=== PATIENT | female | born 1970 | race Caucasian/White ===

== ENCOUNTER 2018-05-27 08:22 | Day surgery (SDC) | payer BC ==
[~2018-05-27 08:22] MED LIST: Buffered Lidocaine 0.9% SYRIN* 5 ML/SYR SYRINGE INTRADERM ONE
[2018-05-27] MEDS ORDERED: Buffered Lidocaine 0.9% SYRIN* 5 ML/SYR SYRINGE ONE (08:28)
[2018-05-27] MEDS ORDERED: Oxymetazoline 0.05% NASAL SPR* 15 ML BTL ONE ×2 (09:08→10:02)
[2018-05-27] MEDS ORDERED: Lidocain 1% EPI 1:100,000 * 30 ML MDV ONE (10:02)
[2018-05-27] MEDS ORDERED: Bacitracin OINTMENT* 0.5% 0.5 oz TUBE ONE (10:02)
[2018-05-27] MEDS ORDERED: Lidocaine 4% TOPICAL* 50 ML TOP.SOLN ONE (10:02)
[2018-05-27] MEDS ORDERED: DiMENhydriNATE IV* 50 MG/ML VIAL IV PUSH PRN (10:14)
[2018-05-27] MEDS ORDERED: PROCHLORPERAZINE INJ 5 MG/ML 2 ML VIAL IV PRN (10:14)
[2018-05-27] MEDS ORDERED: Naloxone* 0.4 MG/ML 1 ML VIAL IV PRN (10:14)
[2018-05-27] MEDS ORDERED: Acetaminophen TAB* 325 MG PO PRN (10:14)
[2018-05-27] MEDS ORDERED: Levalbuterol 0.63MG/3ML NEB* UNIT OF USE INH PRN (10:14)
[2018-05-27] MEDS ORDERED: fentaNYL* 50 MCG/ML 2 ML VIAL (100 MCG VIAL) IV PRN (10:14)
[2018-05-27] MEDS ORDERED: Ondansetron INJ* 2 MG/ML VIAL IV PRN (10:14)
[2018-05-27] MEDS ORDERED: Propofol* 10 MG/ML 20 ML BTL IV PUSH ONE (10:24)
[2018-05-27] MEDS ORDERED: Famotidine IV* 10 MG/ML 2 ML (20 mg) ONE (10:24)
[2018-05-27] MEDS ORDERED: Midazolam* 1 MG/ML 2 ML VIAL (2 MG) ONE (10:24)
[2018-05-27] MEDS ORDERED: fentaNYL* 50 MCG/ML 2 ML VIAL (100 MCG VIAL) ONE (10:24)
[2018-05-27] MEDS ORDERED: Dexamethasone IV* 4 MG/ML 1 ML (4 MG) ONE (10:24)
[2018-05-27 11:32] VITALS: BP 127/79
--- NOTE | 2018-05-27 21:47 | OP ---
DATE OF OPERATION: 05/27/18 - [facility] DATE OF : 74 SURGEON: Franklin Cazares MD CLOTH FOLDER MACHINE: None. ANESTHESIA: Local MAC. PRE-OP DIAGNOSIS: Nasal septal perforation. POST-OP DIAGNOSIS: Nasal septal perforation. OPERATIVE PROCEDURE: Placement of septal button under anesthesia. FINDINGS: Moderate sized anterior septal perforation measuring 15 x 10 mm. INDICATIONS: This is a 47-year-old woman who was seen for chronic nasal complaints. On exam, she was noted to have a septal perforation which in retrospect the patient thinks has been there for many years, although the etiology is unclear. She does not have any traditional risk factors for developing a septal perforation. The decision was made to proceed with placement of a septal button. We decided to do this in the operating room under local anesthesia with a little bit of sedation given the inherent discomfort associated with the procedure and some underlying anxiety. DESCRIPTION OF PROCEDURE: On 05/27/18, the patient was brought to the operating room. IV sedation was given by the anesthesiologist. The patient was draped and a time-out was performed. Cottonoid pledgets soaked in 4% lidocaine and Afrin were placed into each nasal cavity. Once adequate time had been allotted for vasoconstriction and surface anesthesia, approximately 1 cc of 1% lidocaine with 1:100,00 epinephrine was then infiltrated into the edges of the septal perforation. A small newspaper inserter was then trimmed and placed into the nose and used to measure the dimensions of the septal perforation. Septal perforation measured approximately 15 mm anterior to posterior and 10 mm inferior to superior. The septal button was trimmed accordingly. It was then placed into the right nasal cavity and worked into position spanning the septal perforation using a caudal elevator and mosquito clamp. Once in position, 5-0 Prolene was used to secure the button. Two interrupted stitches were placed. The patient was then brought to the recovery room in stable condition. [id number]/[facility] #: [id number] MTDD
== END 2018-05-27 11:45 | disposition home or self-care (01) ==
LOC: OR 08:22
PROVIDERS: ATTEND Otolaryngology
DX: J34.89 Other specified disorders of nose and nasal sinuses (principal); J45.909 Unspecified asthma, uncomplicated; F41.9 Anxiety disorder, unspecified
CPT/HCPCS: 81025; A9270-GY; J1100; J2250; J2704; J3010

== ENCOUNTER → 2018-10-19 05:37 | Day surgery (SDC) | payer BC ==
[~2018-10-19 05:37] MED LIST changes: -Buffered Lidocaine 0.9% SYRIN* 5 ML/SYR SYRINGE INTRADERM ONE; +Buffered Lidocaine 1% SYRIN* 1 ML/SYRINGE INTRADERM ONE; +Bupivacaine 0.5% W/EPI SDV* 30 ML VIAL ONE; +Cisatracurium* 2 MG/ML MDV 5 ML ONE; +Dexamethasone IV* 4 MG/ML 1 ML (4 MG) ONE; +EPHEDrine (Pressors)* 50 MG/ML VIAL ONE; +Famotidine IV* 10 MG/ML 2 ML (20 mg) IV ONE; +Famotidine IV* 10 MG/ML 2 ML (20 mg) ONE; +Ketorolac INJ* 30 MG/ML 1 ML VIAL ONE; +Lactated Ringers 1000 ML Bag* 1,000 ML IV SCH; +Lidocaine 2% PF * 5 ML VIAL ONE; +Midazolam* 1 MG/ML 5 ML VIAL (5 MG) ONE; +Ondansetron INJ* 2 MG/ML VIAL ONE; +Propofol* 10 MG/ML 20 ML BTL ONE; +ceFOXitin 2 GM IVPREMIX* 2 GM/50 ML BAG ONE; +fentaNYL* 50 MCG/ML 2 ML VIAL (100 MCG VIAL) ONE
[2018-10-19 06:47] VITALS: BP 130/95
[2018-10-19 07:15] LABS: ABS Basophils 0.1 10^3/ul (0-0.2); ABS Eosinophils 0.1 10^3/ul (0-0.6); ABS Lymphocytes 2.2 10^3/ul (1.0-4.8); ABS Monocytes 0.6 10^3/ul (0-0.8); ABS Neutrophils 8.5 10^3/ul (1.5-7.7); ABS Nucleated RBC 0 10^3/ul; Eosinophil % 0.8 %; Hematocrit 44 % (35-47); Hemoglobin 14.7 g/dl (12.0-16.0); Lymphocyte % 19.4 %; Mean Corpuscular HGB Conc 34 g/dl (31-36); Mean Corpuscular Hemoglobin 31 pg (27-31); Mean Corpuscular Volume 92 fL (80-97); Mean Platelet Volume 8.2 fL (7.4-10.4); Nucleated Red Blood Cells % 0; Platelet Count 238 10^3/ul (150-450); Red Blood Count 4.75 10^6/ul (4.00-5.40); Red Cell Distribution Width 13 % (10.5-15); White Blood Count 11.5 10^3/ul (3.5-10.8)
== END | disposition home or self-care (01) ==
LOC: OR 05:37
PROVIDERS: ATTEND Obstetrics & Gynecology
DX: N92.1 Excessive and frequent menstruation with irregular cycle (principal); Z53.9 Procedure and treatment not carried out, unspecified reason; N80.0 Endometriosis of uterus; F41.8 Other specified anxiety disorders; J45.909 Unspecified asthma, uncomplicated
CPT/HCPCS: 36415; 84702; 85025; 86850; 86900; 86901; J0694; J1100; J1885; J2250; J2405; J2704; J3010

== ENCOUNTER 2018-10-26 07:23 | Observation (INO) | payer BC ==
[~2018-10-26 07:23] MED LIST changes: -Bupivacaine 0.5% W/EPI SDV* 30 ML VIAL ONE; -Cisatracurium* 2 MG/ML MDV 5 ML ONE; -Dexamethasone IV* 4 MG/ML 1 ML (4 MG) ONE; -EPHEDrine (Pressors)* 50 MG/ML VIAL ONE; -Famotidine IV* 10 MG/ML 2 ML (20 mg) ONE; -Ketorolac INJ* 30 MG/ML 1 ML VIAL ONE; -Lidocaine 2% PF * 5 ML VIAL ONE; -Midazolam* 1 MG/ML 5 ML VIAL (5 MG) ONE; -Ondansetron INJ* 2 MG/ML VIAL ONE; -Propofol* 10 MG/ML 20 ML BTL ONE; -ceFOXitin 2 GM IVPREMIX* 2 GM/50 ML BAG ONE; -fentaNYL* 50 MCG/ML 2 ML VIAL (100 MCG VIAL) ONE
[2018-10-26] MEDS ORDERED: Buffered Lidocaine 1% SYRIN* 1 ML/SYRINGE INTRADERM ONE (07:43)
[2018-10-26] MEDS ORDERED: ceFOXitin 2 GM IVPREMIX* 2 GM/50 ML BAG ONE (07:43)
[2018-10-26] MEDS ORDERED: Famotidine IV* 10 MG/ML 2 ML (20 mg) ONE (07:43)
[2018-10-26] MEDS ORDERED: Midazolam* 1 MG/ML 5 ML VIAL (5 MG) ONE (08:34)
[2018-10-26] MEDS ORDERED: fentaNYL* 50 MCG/ML 2 ML VIAL (100 MCG VIAL) ONE ×2 (08:34→10:35)
[2018-10-26] MEDS ORDERED: Rocuronium* 10 MG/ML VIAL ONE (08:35)
[2018-10-26] MEDS ORDERED: Methylene Blue 0.5 %* 50 MG/10 ML AMP IV ONE (10:15)
[2018-10-26] MEDS ORDERED: Ondansetron INJ* 2 MG/ML VIAL ONE (10:48)
[2018-10-26] MEDS ORDERED: Succinylcholine* 20 MG/ML 10 ML VIAL ONE (10:48)
[2018-10-26] MEDS ORDERED: Dexamethasone IV* 4 MG/ML 1 ML (4 MG) ONE (10:48)
[2018-10-26] MEDS ORDERED: Lidocaine 2% PF * 5 ML VIAL ONE (10:48)
[2018-10-26] MEDS ORDERED: DiMENhydriNATE IV* 50 MG/ML VIAL ONE ×2 (10:48→13:14)
[2018-10-26] MEDS ORDERED: Propofol* 10 MG/ML 20 ML BTL ONE (10:48)
[2018-10-26] MEDS ORDERED: Acetaminophen IV 1GM/100ML * 1,000 MG/100 ML VIAL IVPB ONE (10:59)
[2018-10-26] MEDS ORDERED: DiMENhydriNATE IV* 50 MG/ML VIAL IV PUSH PRN (10:59)
[2018-10-26] MEDS ORDERED: Scopolamine 1.5 mg* PATCH TRANSDERM PRN (10:59)
[2018-10-26] MEDS ORDERED: Naloxone* 0.4 MG/ML 1 ML VIAL IV PRN (10:59)
[2018-10-26] MEDS ORDERED: HYDROmorphone INJ1* 1 MG/ML SYRINGE ONE ×2 (11:42→13:00)
[2018-10-26] MEDS ORDERED: Acetaminophen IV 1GM/100ML * 100 ML ONE (12:27)
[2018-10-26] MEDS: HYDROmorphone INJ1* 1 MG/ML SYRINGE IV PRN ×4 (13:00→13:18)
[2018-10-26] MEDS ORDERED: Bupivacaine 0.5% W/EPI SDV* 30 ML VIAL ONE (13:08)
[2018-10-26] MEDS: Lactated Ringers 1000 ML Bag* 1,000 ML IV SCH ×2 (14:32→22:19)
[2018-10-26] MEDS: oxyCODONE/Acetamin 5/325 MG* TAB PO PRN ×2 (15:31→20:09)
--- NOTE | 2018-10-26 19:16 | PN ---
Progress Note - Progress Note Date of Service: 10/26/18 SOAP: Subjective: []pt feeling ok . not much pain . Objective: [vitals stable hr 103 bp stable abdomend soft dressing dry. no rebound / no guarding .] extremities non tender Assessment: [post op check s/p supra cervical hysterectomy doing well] Plan: [Check H&H]
[2018-10-26 19:53] LABS: Hematocrit 42 % (35-47); Hemoglobin 13.8 g/dl (12.0-16.0)
[2018-10-27] MEDS: oxyCODONE/Acetamin 5/325 MG* TAB PO PRN ×2 (01:32→06:08)
[2018-10-27 05:13] LABS: ABS Basophils 0.1 10^3/ul (0-0.2); ABS Eosinophils 0 10^3/ul (0-0.6); ABS Lymphocytes 2.4 10^3/ul (1.0-4.8); ABS Monocytes 1.2 10^3/ul (0-0.8); ABS Neutrophils 17.2 10^3/ul (1.5-7.7); ABS Nucleated RBC 0 10^3/ul; Eosinophil % 0.1 %; Hematocrit 37 % (35-47); Hemoglobin 12.4 g/dl (12.0-16.0); Lymphocyte % 11.5 %; Mean Corpuscular HGB Conc 34 g/dl (31-36); Mean Corpuscular Hemoglobin 31 pg (27-31); Mean Corpuscular Volume 92 fL (80-97); Mean Platelet Volume 8.3 fL (7.4-10.4); Nucleated Red Blood Cells % 0; Platelet Count 192 10^3/ul (150-450); Red Blood Count 3.97 10^6/ul (4.00-5.40); Red Cell Distribution Width 13 % (10.5-15); White Blood Count 20.9 10^3/ul (3.5-10.8)
[2018-10-27 08:55] VITALS: BP 127/76
--- NOTE | 2018-10-27 10:13 | PN ---
Progress Note - Progress Note Date of Service: 10/27/18 SOAP: Subjective: [Patient is post-op day 1 from a Laparoscopic supracervial hysterectomy and left salpingectomy. She is tolerating a regular diet, passing flatus, ambulating and voiding without difficulty. Pain tolerable with PO meds. She demies chest pain, shortness of breath or nausea/vomiting.] Objective: [ Vital Signs Temp Pulse Resp BP Pulse Ox 97.6 F 81 16 127/76 100 10/27/18 08:00 10/27/18 08:00 10/27/18 08:00 10/27/18 08:00 10/27/18 08:00 Laboratory Results - last 24 hr 10/26/18 10/27/18 19:32 05:00 WBC 20.9 H RBC 3.97 L Hgb 13.8 12.4 Hct 42 37 MCV 92 MCH 31 MCHC 34 RDW 13 Plt Count 192 MPV 8.3 Neut % (Auto) 82.2 Lymph % (Auto) 11.5 [place] % (Auto) 5.8 Eos % (Auto) 0.1 Baso % (Auto) 0.4 Absolute Neuts (auto) 17.2 H Absolute Lymphs (auto) 2.4 Absolute Monos (auto) 1.2 H Absolute Eos (auto) 0 Absolute Basos (auto) 0.1 Absolute Nucleated RBC 0 Nucleated RBC % 0 Lungs CTA b/l, no CVA tenderness b/l CV RRR Abdomen soft , mildly distended, appropriately tender, NABS. Abdominal umbilical and suprapubic incisions are C/D/I with no discharge, erythema or induration.] Assessment: [Normal post operative course.] Plan: [Discharge home this am, post op care instructions reviewed with patient/ spouse. Instructions for f/u appt next week.]
[2018-10-27] MEDS ORDERED: oxyCODONE TAB* 5 MG TAB ONE (10:51)
[2018-10-27] MEDS ORDERED: oxyCODONE TAB* 5 MG TAB PO ONE (11:00)
--- NOTE | 2018-11-01 00:22 | OP ---
CC: Dr. Mead.* DATE OF OPERATION: 10/26/18 - ROOM #334 DATE OF : 74 SURGEON: Moy Long MD [employer] MECHANIC: Dr. Mead. ANESTHESIA: General anesthetic with endotracheal intubation. PRE-OP DIAGNOSIS: Menometrorrhagia. POST-OP DIAGNOSIS: Menometrorrhagia pending pathology. OPERATIVE PROCEDURE: Laparoscopic supracervical hysterectomy with left salpingectomy. ESTIMATED BLOOD LOSS: About 10 cc. SPECIMEN SENT TO PATHOLOGY: Morcellated uterus along with the left fallopian tube. FLUID: The patient received 1800 cc of IV crystalloid fluid. URINE OUTPUT: 400 cc of clear urine. FINDINGS: Laparoscopically revealed an enlarged globular uterus with missing right tube and ovary from prior salpingo-oophorectomy. She had a normal left tube and a normal left ovary. The bladder and bowel were within normal limits. DESCRIPTION OF PROCEDURE: The patient was taken to the operating room where she was identified. She was placed on the operating table, where a general anesthetic with an endotracheal intubation was obtained without difficulty. She was then placed in the dorsal lithotomy position, prepped and draped in a normal sterile fashion. Attention was then brought onto the patient's perineum , where the bladder was catheterized with a Mcdonnell catheter and placed in drainage. A weighted speculum was inserted to the patient's vagina. The cervix was identified and grasped with a single-tooth tenaculum. The cervix was noted to be stenotic and a single-tooth tenaculum was removed and a sponge stick was left in the vagina to mobilize the uterus intraoperatively. The weighted speculum was removed. Attention was then brought on to the patient's abdomen, where a 1 cm infraumbilical skin incision was made with a knife and carried though the underlying layer of facia. The facia was brought up with Junior clamps, incised in the midline and extended superiorly and inferiorly sharply about 4 cm. Through this incision, entry into the peritoneum was confirmed using a Jennifer clamp. Through this incision a single site laparoscopic port was introduced, a GelPOINT port. Through this port, 3 trocars were introduced through the port and the patient's abdomen was then insufflated with CO2 gas. She was placed in a Trendelenburg position. The anatomy in the patient's pelvis was identified and noted as above. We then proceeded to perform a left salpingectomy. Fallopian tube was grasped at its fimbriated portion. It was then coagulated and transected using LigaSure device. Once the fallopian tube was completely removed, it was removed through the trocar and sent to Pathology. At this point, the left ovary was grasped with LigaSure at the uteroovarian ligament and this was then coagulated and transected with a LigaSure device. The round ligament and left aspect of the uterus was also grasped with a LigaSure, transected after coagulation. A window was made in the anterior leaf of the broad ligament and it was then dissected towards the bladder using blunt and sharp dissection. The right round ligament was grasped with a LigaSure, it was coagulated, transected with LigaSure the ligament and an anterior window was made in the anterior broad ligament and this was also transected towards the bladder with sharp and blunt dissection. A bladder flap was made at the lower uterine segment using both sharp and blunt dissection with the LigaSure ligament and the bladder was mobilized away from the cervicouterine junction. The uterine arteries were then identified bilaterally. They were grasped with the LigaSure device. They were transected after coagulation at the upper most aspect of the cervix and then they were coagulated and mobilized away from the cervix using the LigaSure device. At this point, we then proceeded to introduce a trocar of 4 cm above the symphysis pubis. Through this trocar, a SuperLoop was introduced. The loop was then wrapped around the cervicouterine junction. It was activated with a 100% pure cut and the uterus was then transected using cautery from the cervix. Once the uterus was amputated around the cervix, it was mobilized away from the cervix and the cervix was noted to be completely hemostatic. At this point , the GelPOINT device was removed. The CO2 gas from the patient's abdomen was also removed. The patient was put in reverse Trendelenburg, until she was in a completely flat position. Through the umbilical incision, we then introduced an Endobag. The Endobag was inside of the patient's abdomen. We then proceeded to reintroduce the GelPOINT single site device. The patient's abdomen was insufflated with CO2 gas and then we were able to place the uterus into the Endobag. The GelPOINT device was then removed as well as the CO2 gas. The bag was removed through the umbilicus containing the uterus. The uterus was then morcellated using sharp dissection with curved Simons scissors. The morcellated uterus was removed in one portion and sent to Pathology. The bag in which the uterus was placed was also removed from the patient's abdomen. The GelPOINT device was then replaced. The patient's abdomen was then insufflated with CO2 gas. A second look at the surgical site showed a complete hemostasis of the surgical pedicles. We proceeded to irrigate the patient's pelvis with normal saline. The irrigation fluid was then suctioned. Again, the surgical pedicles were noted to be hemostatic and at this point, we proceeded to remove all the instruments from the patient's abdomen along with the GelPOINT device and the CO2 gas was removed. The fascia on the umbilicus was closed using 0 Polysorb suture in a running fashion and skin incision at the umbilicus and suprapubically were closed with 4-0 Monocryl subcuticular stitch. The patient tolerated the procedure well. Sponge, lap and needle counts were correct x2. The Mcdonnell catheter was also removed as well as the sponge stick in the vagina. The patient was then transferred to the recovery room area in a stable condition. There were no complications during the procedure. [id number]/[facility] #: [id number] KENDRA
--- NOTE | 2018-11-17 09:25 | DS ---
DISCHARGE SUMMARY: DATE OF ADMISSION: 10/26/18 DATE OF DISCHARGE: 10/27/18 ADMISSION DIAGNOSIS: Abnormal uterine bleeding consistent with menometrorrhagia. HOSPITAL COURSE: She underwent a laparoscopic supracervical hysterectomy with left salpingectomy on the day of admission and she was discharged on 10/27/18, home. The patient was admitted to the hospital. She underwent surgery on the date of admission. On postop day #1, the patient was stable with stable vital signs. She was tolerating a regular diet, ambulating without difficulty and voiding without any problem. On postop day 1, complete blood cell count was within normal limits with a hemoglobin and hematocrit of 13.9/42. She was therefore discharged home to follow up at my office 1 week after her surgery. Discharge instructions were reviewed with the patient along with prescribed medications. [id number]/[facility] #: [id number] MTDD
== END 2018-10-27 11:35 | disposition home or self-care (01) ==
LOC: OR 07:23 → INTOOBSV 15:19 → SSU 15:19
PROVIDERS: ADMIT Obstetrics & Gynecology; ATTEND Obstetrics & Gynecology
DX: N92.1 Excessive and frequent menstruation with irregular cycle (principal); N80.0 Endometriosis of uterus
CPT/HCPCS: 36415; 85014; 85018; 85025; 88302; 88307; A9270-GY; G0378; J0330; J0694; J1100; J1170; J1240; J2250; J2405; J2704; J3010